=== PATIENT | female | born 1990 | race African-American/Black ===

== ENCOUNTER 2020-08-09 12:36 | Inpatient (IN) | payer OTHER, SELFPAY ==
[~2020-08-09] VITALS: Ht 175.3 cm; Wt 109.6 kg
[2020-08-09 12:59] VITALS: BP 130/75
[2020-08-09] MEDS ORDERED: PRENTAB9 PO (13:02)
[2020-08-09] MEDS ORDERED: PENICILLIN G POTASSIUM IV 5 MU in D5W MINI-BAG PLUS 100 ML IV STA (13:28)
[2020-08-09] MEDS ORDERED: LR 1,000 ML IV SCH (13:28)
--- NOTE | 2020-08-09 14:05 | HPEPDOC ---
Obstetrical History & Physical General Date of Admission Aug 09, 2020 at 13:32 History of Present Illness 30 yo at 39+2 weeks gestation by LMP of [id number] c/w 8+0 week US on presents to L&D with the complaint of intermittent contractions. She reports with her previous two deliveries she barely got to the hospital in time before she delivered. She is GBS positive and wanted to make sure she got to the hospital in time. She denies any bleeding or leakage of fluid. She endorses movement. Chief Complaint: Contractions, term Information Provided By: Patient Age: 30 : 3 Term: 1 Pre-term: 1 Abortions: 0 Livin Care Care: Good Care Dating Final EDC: Aug 14, 2020 Final EDC for Daily Update: Aug 14, 2020 Final EDC by: LMP (LMP of [id number]) LMP: Nov 08, 2019 1st Trimester Date: Jan 04, 2020 (8+0 week US c/w LMP dating. SALO remains [id number]) Antepartum Course Diagnos(e)s Excessive weight gain (BMI 35) Hx of delivery at 36 weeks GBS positive Varicella non immune Past Medical History Past Obstetrical History : Past Obstetrical History: Multigravida ( X2, one full term, one at 36 weeks) Complications: No PRODUCT SUPPORT REPRESENTATIVE History: Abnormal Pap (ASCUS pap at new OB) Past Medical History Medical History Denies Surgical History: Other (Meniscus repair, Tonsils, pilonidal cyst) Family History Significant Family History: No pertinent family hx Social History Marital Status: Other (UNK social situation) Psychosocial History: No pertinent psych hx * Smoker: non-smoker Alcohol: Denies Drugs: denies Abuse Violence Screening Have you been hit/kicked/slapp: No Have you been sexually assault: No Imunizations Tdap status: current Influenza Status: needs Allergies Coded Allergies: levofloxacin (Verified Allergy, Severe, 08/09/20) Medications Scheduled No.137/Iron/Folic Acd ( Vitamin Tablet) 1 Each Tablet, 1 TAB PO DAILY Physical Examination Physical Examination GENERAL: Alert and oriented times three. ABDOMEN: Gravid and non-tender to touch. FETUS: Is vertex (VTX) by sterile vaginal examination (SVE) EXTREMITIES: No edema. Laboratory Data Urine Culture: No Growth Pertinent Laboratoy Data Blood Type: O+ RBC Antibody Screen: Negative HIV: Negative Hepatitis B: Negative Hepatitis C: Unknown Rapid Plasma Reagin: Nonreactive Rubella: Immune Varicella: Nonreactive (Will need vaccine ) Chlamydia/Gonorrhea: Negative Group B Streptococcus: Positive Quad Screen Test: Unknown Cystic Fibrosis: Unknown Glucose Tolerance Test: 100 Anatomy Ultrasound Placenta Location: Anterior Normal Anatomy: Yes Placenta Previa: No Steroid Therapy Steroid Therapy: No Vaginal Examination Dilation: 5 cm Effacement: 90% Station: -1 Cervical Consistency: Soft Cervical Position: Middle Presentation: Cephalic presentation Position: Vertex (occiput) Assessment Heart Rate (FHR): 130 Variability: Moderate Accelerations: Positive Decelerations: None Tocometer Contractions: Yes Frequency: every 3-7 min. Duration: greater than 60 seconds Strength: palpated as moderate Assessment/Plan Assessment 30 yo at 39+2 weeks presented in early labor. Plan Given her cervical dilation, history of precipitous deliveries, and GBS positive status, will admit for expectant management of labor. Apply IV fluids. Start PCN for GBS prophylaxis. Clear liquid diet. Patient may have epidural if desired. Anticipate . Sarwat Keith, DO Labor and Delivery Counseling Vaginal / Operative vaginal delivery / C section counseling We will deliver your baby through the vagina with possible assistance of forceps or vacuum device if needed for maternal or indications. Forceps and vacuum are devices that can assist with vaginal delivery when normal pushing efforts cannot achieve delivery on their own or when delivery is needed in an emergency for baby's well-being. Medications may be required to induce or augment (help) your labor in order to achieve a vaginal delivery. An episiotomy may be required to help your baby to delivery vaginally. You may also require repair of any lace rations or tears of your vagina or vulva that are caused by delivery. In some cases, emergencies can occur that require an emergency section delivery so quickly that there may not be enough time to stop and complete consent forms for section. Understand that if this occurs, your providers will discuss the need for a section with you before they proceed with surgery. section is the delivery of your baby through an incision in your abdomen. In some situations, section may be safer to mom and baby than continuing labor and is only performed when clinically indicated. Risks of vaginal delivery include but are not limited to: Bleeding, infection, injury to the vagina, pelvic structures, injury to baby, damage to the uterus, reactions to anesthesia, uterine rupture, risk of hysterectomy for life threatening bleeding, or . Medications used to induce or augment labor may increase your risk for infection, uterine tachysystole, uterine rupture, heart rate abnormalities, need for emergency delivery or possible hysterectomy, and hemorrhage. Additional risks for use of forceps and vacuum include: increased risk of perineal and vaginal lacerations, risk of urinary or bowel incontinence, increased risk of injury to baby with bruising, scratches, hematomas on the head, or intracranial bleeding. Ms. Pineda appears to understand these risks and elects to proceed with IOL. She also consents to a blood transfusion if necessary. DO MERLY Simons CHRISTOPHER J. DO Aug 09, 2020 14:05
[2020-08-09 14:30] LABS: HEMATOCRIT 41.4 % (36.0-47.0); HEMOGLOBIN 13.3 g/dl (12.0-15.5); MEAN CORPUSCULAR HEMOGLOBIN 29.3 pg (27.0-33.0); MEAN CORPUSCULAR HGB CONC 32.1 g/dl (32.0-36.5); MEAN CORPUSCULAR VOLUME 91.2 fl (80.0-96.0); PLATELET COUNT, AUTOMATED 277 10^3/uL (150-450); RED BLOOD COUNT 4.54 10^6/uL (4.00-5.40); WHITE BLOOD COUNT 12.6 10^3/uL (4.0-10.0)
[2020-08-09] MEDS ORDERED: OXYTOCIN DRIP 30 UNITS in IV 1 EA IV SCH ×2 (15:00→15:30)
[2020-08-09] MEDS ORDERED: ACETAMINOPHEN 500 MG TAB PO PRN (15:15)
[2020-08-09] MEDS ORDERED: BENZOCAINE 20% HEMORRHOIDAL OINTMENT 28GM TUBE TOP PRN (15:15)
[2020-08-09] MEDS ORDERED: RHOGAM 300 MCG (1500 IU) INJ (J2790) IM SCH (15:15)
[2020-08-09] MEDS ORDERED: ONDANSETRON 4MG/2ML VIAL IV PRN (15:15)
[2020-08-09] MEDS ORDERED: IBUPROFEN 600MG TAB PO PRN (15:15)
[2020-08-09] MEDS ORDERED: ACETAMINOPHEN TAB 650MG DOSE (2X325MG) PO PRN (15:15)
[2020-08-09] MEDS ORDERED: IBUPROFEN 800 MG TAB PO PRN (15:15)
[2020-08-09] MEDS ORDERED: MEASLES,MUMPS,RUBELLA VACCINE INJ (MMR-II) (90707) SC SCH (15:15)
[2020-08-09] MEDS ORDERED: DOCUSATE SODIUM 100 MG CAP PO PRN (15:15)
[2020-08-09 15:43] VITALS: BP 149/70
[2020-08-09 15:58] VITALS: BP 137/72
--- NOTE | 2020-08-09 16:13 | DNPDOC ---
[facility] Delivery Note Delivery Note DATE OF DELIVERY: 09Aug2020 at ~1500 PREDELIVERY DIAGNOSIS: 39+2 weeks gestation and active labor POST DELIVERY DIAGNOSIS: Delivered. PROCEDURE: Spontaneous vaginal delivery DIGITAL RESEARCH ANALYST: Dr. Keith ANESTHESIA: None ESTIMATED BLOOD LOSS: 200 FINDINGS: 6 pound 15 ounce female , Score 9/9 DELIVERY SUMMARY: Yvonne progressed rapidly to C/C/+2 and felt a strong urge to push. Her membranes spontaneously ruptured and the fluid was clear. She only had time for one dose of IV PCN. The bed was broken down and she was prepped for delivery. With excellent effort over about only two sets of pushes, her baby delivered. Presentation was AYESHA with restitution to [facility]. The right anteri or shoulder delivered with gentle traction followed easily by the remainder of the body. The was dried and stimulated on the field and a bulb suction was used. The was placed on the maternal abdomen. The three vessel umbilical cord was then clamped and cut by me. Third stage was completed with gentle traction on on the cord and it was productive of an intact placenta. The uterus was firmed with massage and pitocin was administered IV bolus. Inspection of the cervix, vagina, labia, and perineum revealed no lacerations. The fundus was palpated again and was firm. Sponge, instrument, and needle counts were correct X2. Mother and stable when I left the room. DO MERLY Simons CHRISTOPHER J. DO Aug 09, 2020 16:13
[2020-08-09 16:15] VITALS: BP 141/77
[2020-08-09 16:28] VITALS: BP 136/77
[2020-08-09 17:56] VITALS: BP 136/69
[2020-08-09] MEDS ORDERED: PENICILLIN G POTASSIUM IV 2.5 MU in IV 1 EA IV SCH (18:30)
[2020-08-10 06:26] VITALS: BP 121/60
[2020-08-10] MEDS: PRENATAL VITAMINS CHEWABLE TABLET PO SCH (08:15)
--- NOTE | 2020-08-10 08:20 | IPNPDOC ---
Progress Note Date of Service: Aug 10, 2020 Progress Note Yvonne is a 30 yo G3 now P3 who is PPD#1 s/p uncomplicated on 10Aug2020 at ~1530 after being admitted for active labor Overnight, Yvonne reports doing well. She is ambulating, voiding spontaneously, and tolerating a regular diet. Lochia is minimal. Vitals - VSS, afebrile General - AAOX3, sitting up in bed, NAD Abdomen - Fundus firm at U-2. No fundal tenderness Extremities - No edema Ms. Pineda is doing well and is making an appropriate recovery. If she continues to meet all criteria she will be a candidate for discharge tomorrow. Jo Ann Keith DO VS, I&O, 24H, Fishbone Vital Signs/I&O Vital Signs Date Time Temp Pulse Resp B/P (MAP) Pulse Ox O2 Delivery O2 Flow Rate FiO2 08/10/20 06:26 97.6 83 16 121/60 (80) I&O- Last 24 Hours up to 6 AM 08/10/20 06:00 Intake Total 480 ml Output Total 700 ml Balance -220 ml Laboratory Data 24H LABS Laboratory Tests 2 08/09/20 14:03: Nucleated Red Blood Cells % (auto) 0.0, Syphilis Serology NONREACTIVE, Hepatitis B Surface Antigen NEGATIVEL 08/09/20 14:28: Coronavirus (COVID-19)(PCR) NEGATIVE 08/09/20 14:58: Serology Scanned Report Hepatitis B Testing CBC/BMP Laboratory Tests 08/09/20 14:03 JO ANN KEITH DO Aug 10, 2020 08:20
[2020-08-10 18:04] VITALS: BP 133/81
[2020-08-11 06:00] VITALS: BP 127/62
[2020-08-11] MEDS ORDERED: DOCU100C16 PO (07:19)
[2020-08-11] MEDS ORDERED: IBUP-1022 PO (07:19)
[2020-08-11] MEDS: PRENATAL VITAMINS CHEWABLE TABLET PO SCH (08:19)
== END 2020-08-11 12:25 | disposition home or self-care (01) | DRG 807 ==
LOC: M LDO 12:36 → M LDI 13:32 → M OBS 17:07
PROVIDERS: ADMIT Obstetrics & Gynecology; ATTEND Obstetrics & Gynecology
PROC: 10E0XZZ Delivery of Products of Conception, External Approach (ICD-10-PCS; principal; 2020-08-09)
DX: O62.3 Precipitate labor (principal); Z37.0 Single live birth; Z3A.39 39 weeks gestation of pregnancy; O99.824 Streptococcus B carrier state complicating childbirth